=== PATIENT | male | born 1985 | race Caucasian/White ===

== ENCOUNTER 2024-03-28 11:49 | Day surgery (SDC) | payer OTHER, SELFPAY ==
--- NOTE | 2024-03-28 | PATH_ITS ---
[facility] Accession Number: [id number] No. of containers..01 Tissue . 01 Material submitted: . gastrointestinal site - GASTRIC BIOPSY . 01 Diagnosis: GASTRIC BIOPSY: Gastric mucosa with mild chronic inflammation. No Helicobacter organisms identified. No intestinal metaplasia, dysplasia, or malignancy identified. [facility] 04/02/20241745 Local . 01 Electronically signed: . Jose Campbell MD, Pathologist NPI- [id number] . 01 Gross description: . GASTRIC BIOPSY: Received in formalin is 1 fragment(s) of gaston, soft tissue measuring 0.5 x 0.3 x 0.2 cm submitted entirely in 1 cassette(s) /[facility] 04/02/20241745 Local . 01 Microscopic: . GASTRIC BIOPSY: An immunohistochemical stain was performed to evaluate for Helicobacter organisms and is negative. The control stains appropriately. * This test was developed and its performance characteristics determined by [facility]. It has not been cleared or approved by the [place]. Food and Drug Administration. The FDA has determined that such clearance or approval is not necessary. This test is used for clinical purposes. It should not be regarded as investigational or for research. . 01 Pathologist provided ICD-10: K29.50 . 01 CPT . 310394, [id number] Specimen Comment: A courtesy copy of this report has been sent to [phone] Performed at: [address] [address], [place], [place] [id number] MD Jose Campbell MD Phone: [phone]
[2024-03-28] MEDS: LACTATED RINGERS 1,000 ML 42 ML IV (12:30)
[2024-03-28 12:33] VITALS: BMI 22.8
[2024-03-28 12:44] VITALS: BP 130/84; PULSE 83; RESP 12; TEMP 36.2; O2SAT 98
--- NOTE | 2024-03-28 13:02 | PM.PREOP ---
Pre-operative Note Interval Note History & Physical reviewed/Exam performed by Physician: Yes Changes to H&P: No ASA Class (for procedural sedation): II
--- NOTE | 2024-03-28 13:02 | PM.OP.EGD ---
Operative Date/Time/Diagnoses Date of procedure: 03/28/24 Pre-op diagnosis: See indication and findings Procedure & Clinicians Study performed: EGD Indications: Dyspepsia and GE reflux Surgeon: Marquis Do Procedure Notes Procedure in detail: After informed consent was obtained the patient was placed in left lateral decubitus position. Video upper scope was placed into the oropharynx and with the patient's help swallowed into the esophagus. The esophagus stomach and duodenum were carefully examined. On withdrawal, retroflexed view the GE junction was performed. The scope was removed. The patient tolerated procedure well. Blood loss none Complications none Sedation mac Findings 1. Normal esophagus 2. Mild erythema in a patchy fashion in the stomach. Biopsies taken to rule out Helicobacter 3. Normal duodenal bulb and sweep Patient stay on current medication and follow up with primary GI provider. We will be in touch regarding the biopsies. The
--- NOTE | 2024-03-28 13:19 | SUR.OPER ---
EGD SCOPE 043
[2024-03-28 13:27] VITALS: BP 105/67; PULSE 83; RESP 16; TEMP 36.4; O2SAT 97
[2024-03-28 13:32] VITALS: BP 112/74; PULSE 78; RESP 12; O2SAT 94
[2024-03-28 13:37] VITALS: BP 111/75; PULSE 78; RESP 16; O2SAT 95
[2024-03-28 13:42] VITALS: BP 111/80; PULSE 77; RESP 14; TEMP 36.4; O2SAT 95
[2024-03-28 13:47] VITALS: BP 116/81; PULSE 73; RESP 12; O2SAT 96
== END 2024-03-28 14:03 | disposition home or self-care (01) ==
PROVIDERS: PCP Student in an Organized Health Care Education/Training Program; Referring Provider Internal Medicine Gastroenterology; Visit Provider Internal Medicine Gastroenterology
PROC: 0DJ08ZZ Inspection of Upper Intestinal Tract, Via Natural or Artificial Opening Endoscopic (ICD-10-PCS; CPT 43235; principal; 2024-03-28 13:00)
DX: K21.9 Gastro-esophageal reflux disease without esophagitis (principal); K29.50 Unspecified chronic gastritis without bleeding
CPT/HCPCS: 43239; J2704